=== PATIENT | female | born 1990 | race African-American/Black ===

== ENCOUNTER 2022-01-28 12:31 | Emergency (ER) | payer SELFPAY ==
[~2022-01-28] VITALS: Ht 157.5 cm; Wt 141.0 kg
[2022-01-28 12:37] VITALS: BP 140/85
== END 2022-01-28 15:04 | disposition home or self-care (01) ==
LOC: ER 12:31
DX: J02.9 Acute pharyngitis, unspecified (principal); R51.9 Headache, unspecified
CPT/HCPCS: 99281